=== PATIENT | female | born 1975 | race Caucasian/White ===

== ENCOUNTER 2025-03-12 12:54 | Outpatient (CLI) | payer OTHER, SELFPAY ==
--- NOTE | 2025-03-12 12:51 | MR_ITS ---
WS: [id number] MRI LEFT WRIST WITHOUT CONTRAST. COMPARISON: Radiograph 02/05/2025 Multiplanar, multisequence imaging is performed without contrast. Marker is placed along the lateral wrist at the level of the carpus to indicate the area of pain. There is significant signal abnormality in the abductor pollicis longus and extensor pollicis brevis tendons along the lateral wrist. There is fluid within the tendon sheath. There is a split tear involving one of the tendons which I believe is the abductor pollicis longus tendon. Signal abnormality within the tendon sheath extends over a length of approximately 3.2 cm. There is no marrow edema. No fractures. There is a small amount of fluid in the distal radial ulnar joint which can be seen with TFCC tears. Scapholunate ligament is normal. Mild degenerative changes at the first carpometacarpal joint. MR/MR wrist LT wo con* [id number] IMPRESSION: 1. Acute tenosynovitis involving the first extensor compartment which contains the extensor pollicis brevis and abductor pollicis longus tendons. 2. There is fluid within the tendon sheath and also split tear in what is prob ably the abductor pollicis longus tendon. 3. Small amount of fluid in the distal radial ulnar joint which can be seen wi th TFCC tears. No tear is appreciated on this exam.
== END 2025-03-12 12:55 | disposition home or self-care (01) ==
LOC: RAD 12:55
PROVIDERS: PCP Physician Assistant; Visit Provider Physician Assistant
DX: S66.812A Strain of other specified muscles, fascia and tendons at wrist and hand level, left hand, initial encounter (principal); X58.XXXA Exposure to other specified factors, initial encounter; M65.88 Other synovitis and tenosynovitis, other site
CPT/HCPCS: 73221

== ENCOUNTER 2025-03-26 14:02 | Outpatient (CLI) | payer OTHER, SELFPAY ==
--- NOTE | 2025-03-26 14:13 | MM_ITS ---
WS: [id number] Bilateral screening 3D tomosynthesis digital mammogram, 03/26/2025 2:15 PM Clinical Data: SCREENING Comparison: None. Findings: No spiculated masses or clustered calcifications are seen. There are no secondary signs of carcinoma. MM/MM scr BI tomosynthesis [id number] Impression: Negative bilateral mammogram with no prior exam for review. Recommend annual screening mammograms. BIRADS: 1 - Negative FOLLOW UP: 1 Year Follow-up DENSITY: The breasts are extremely dense, which lowers the sensitivity of mammo graphy. The CAD color checker roving or yarn was used
== END 2025-03-26 14:03 | disposition home or self-care (01) ==
LOC: RAD 14:03
PROVIDERS: PCP Physician Assistant; Visit Provider Physician Assistant
DX: Z12.31 Encounter for screening mammogram for malignant neoplasm of breast (principal); R92.343 Mammographic extreme density, bilateral breasts
CPT/HCPCS: 77063; 77067